=== PATIENT | female | born 1970 | race Caucasian/White ===

== ENCOUNTER 2018-10-30 21:38 | Emergency (ER) | payer OTHER ==
[~2018-10-30] VITALS: Ht 154.9 cm; Wt 100.0 kg
[2018-10-30 22:01] VITALS: Ht 154.9 cm; Wt 100.0 kg
[2018-10-30] MEDS ORDERED: METOPROLOL TART25 MG PO (22:07)
[2018-10-30] MEDS ORDERED: LISINOPRIL20 MG PO (22:07)
[2018-10-30] MEDS ORDERED: MYSOLINE 50 MG50 MG PO (22:08)
[2018-10-30] MEDS ORDERED: LIPITOR10 MG PO (22:08)
[2018-10-30] MEDS ORDERED: OMEPRAZOLE40 MG PO (22:08)
[2018-10-30 22:43] LABS: BASOPHILS 0.2 % (0-2); EOSINOPHILS 0.7 % (0-7); HEMATOCRIT 32.4 % (36.0-48.0); HEMOGLOBIN 10.5 g/dL (12-16); IMMATURE GRANULOCYTES 0.3 % (0-5); LYMPHOCYTES 12.8 % (15-50); MCH 29.4 pg (26.0-34.0); MCHC 32.4 g/dL (31.0-37.0); MCV 90.8 fL (80.0-100.0); MEAN PLATELET VOLUME 10.6 fL (7.4-10.4); MONOCYTES 5.3 % (2-11); NEUTROPHILS 80.7 % (40-80); PLATELET COUNT 427 10x3/uL (130-400); RBC 3.57 10x6/uL (4.00-5.40); RDW 13.9 % (11.5-14.5); WBC 13.6 10x3/uL (4.8-10.8)
[2018-10-30 23:20] LABS: ALBUMIN 3.9 g/dL (3.4-5.0); ALKALINE PHOSPHATASE 93 U/L (46-116); ALT (SGPT) 35 U/L (10-68); BILIRUBIN - TOTAL 0.15 mg/dL (0.2-1.3); CALC OSMOLALITY 265 mosm/kg (275-300); CALCIUM 9.5 mg/dL (8.5-10.1); CARBON DIOXIDE 25.9 mmol/L (21.0-32.0); CHLORIDE - SERUM 100 mmol/L (98-107); GLUCOSE 116 mg/dL (74-106); PROTEIN - SERUM 7.6 g/dL (6.4-8.2); SODIUM 131 mmol/L (136-145); UREA NITROGEN 18 mg/dL (7-18); eGFR NON AFRICAN AMERICAN 62 mL/min (90-120)
[2018-10-30 23:23] LABS: AMYLASE - SERUM 61 U/L (25-115); LIPASE 140 U/L (73-393); TROPONIN-I < 0.017 ng/mL (0.000-0.060)
[2018-10-31 01:09] LABS: APPEARANCE HAZY (CLEAR); BILIRUBIN NEGATIVE (NEGATIVE); COLOR YELLOW (YELLOW); GLUCOSE NEGATIVE (NEGATIVE); KETONE NEGATIVE (NEGATIVE); NITRITE NEGATIVE (NEGATIVE); PROTEIN NEGATIVE (NEGATIVE); UROBILINOGEN NORMAL (NORMAL)
[2018-10-31 01:11] LABS: BACTERIA MODERATE /hpf (NONE SEEN); EPITHELIAL CELLS 0-5 /hpf (0-5); RED CELLS - URINE NONE SEEN /hpf (0-5); WHITE CELLS - URINE 0-5 /hpf (0-5)
[2018-10-31] MEDS ORDERED: CHRONULAC30 ML PO (01:12)
[2018-10-31 01:33] VITALS: BP 128/50
== END 2018-10-31 01:35 | disposition home or self-care (01) ==
LOC: D.ER 21:38
PROVIDERS: Family Medicine
DX: K59.00 Constipation, unspecified (principal); R10.31 Right lower quadrant pain

== ENCOUNTER 2020-09-04 11:24 | Emergency (ER) | payer OTHER ==
[~2020-09-04] VITALS: Ht 154.9 cm; Wt 113.6 kg
[~2020-09-04 11:24] MED LIST: CHRONULAC30 ML PO; LIPITOR10 MG PO; LISINOPRIL20 MG PO; METOPROLOL TART25 MG PO; MYSOLINE 50 MG50 MG PO; OMEPRAZOLE40 MG PO
[2020-09-04 11:33] VITALS: BP 135/87; Ht 154.9 cm; Wt 113.6 kg
[2020-09-04 12:02] LABS: BASOPHILS 0.3 % (0-2); EOSINOPHILS 1.1 % (0-7); HEMATOCRIT 39.9 % (36.0-48.0); IMMATURE GRANULOCYTES 0.1 % (0-5); LYMPHOCYTES 15.3 % (15-50); MCH 31.9 pg (26.0-34.0); MCHC 32.6 g/dL (31.0-37.0); MEAN PLATELET VOLUME 10.4 fL (7.4-10.4); MONOCYTES 7.7 % (2-11); NEUTROPHIL ABS# 5.41 10x3/uL (1.56-6.13); NEUTROPHILS 75.5 % (40-80); RBC 4.07 10x6/uL (4.00-5.40); RDW 12.8 % (11.5-14.5); WBC 7.2 10x3/uL (4.8-10.8)
[2020-09-04 12:05] LABS: PLATELET COUNT 331 10x3/uL (130-400)
[2020-09-04 12:09] LABS: CALC OSMOLALITY 272 mosm/kg (275-300); CALCIUM 8.8 mg/dL (8.5-10.1); CHLORIDE - SERUM 101 mmol/L (98-107); GLUCOSE 92 mg/dL (74-106); POTASSIUM - SERUM 4.3 mmol/L (3.5-5.1); SODIUM 136 mmol/L (136-145); UREA NITROGEN 14 mg/dL (7-18); eGFR NON AFRICAN AMERICAN 62 mL/min (90-120)
[2020-09-04 12:17] LABS: ALBUMIN 3.6 g/dL (3.4-5.0); ALKALINE PHOSPHATASE 127 U/L (30-120); ALT (SGPT) 23 U/L (10-68); AMYLASE - SERUM 58 U/L (25-115); LIPASE 82 U/L (73-393); PROTEIN - SERUM 7.7 g/dL (6.4-8.2)
[2020-09-04 12:19] LABS: TROPONIN-I < 0.017 ng/mL (0.000-0.060)
[2020-09-04 14:00] LABS: BILIRUBIN NEGATIVE (NEGATIVE); KETONE NEGATIVE (NEGATIVE); NITRITE NEGATIVE (NEGATIVE); UROBILINOGEN NORMAL mg/dL (< 2); WHITE CELLS - URINE 0-5 HPF (0-4)
[2020-09-04 14:01] LABS: BACTERIA MODERATE HPF (NONE SEEN); SQUAMOUS EPITHELIAL 0-5 HPF (0-4)
[2020-09-04] MEDS ORDERED: MACROBID100 MG PO (15:18)
[2020-09-04] MEDS ORDERED: FLUCONAZOLE100 MG PO (15:18)
== END 2020-09-04 16:11 | disposition home or self-care (01) ==
LOC: D.ER 11:24
PROVIDERS: Family Medicine
DX: R10.9 Unspecified abdominal pain (principal); R10.2 Pelvic and perineal pain; N39.0 Urinary tract infection, site not specified; I10 Essential (primary) hypertension